=== PATIENT | female | born 1985 | race Caucasian/White ===

== ENCOUNTER 2022-07-26 09:24 | Outpatient (CLI) | payer BC, SELFPAY ==
--- NOTE | ~2022-07-26 | US_ITS ---
. EXAMINATION: US biopsy abd retroperitoneal DATE: 07/26/2022 10:22 INDICATION: Abdominal wall mass at the section scar. TECHNIQUE: The procedure including the risks, benefits, and alternatives was discussed with the patie nt. Risks discussed included bleeding and infection. The patient understood the risks and agreed to p roceed. The skin overlying the abdomen was prepped and draped in usual sterile fashion. Anesthetic w as administered with 1% lidocaine subcutaneously. An 18 gauge core biopsy needle was then used to ob tain 3 core biopsy specimens under continuous sonographic guidance. The entry site was cleaned and dr essed. There were no immediate complications. FINDINGS: Ultrasound images demonstrate the needle in a 3.0 x 1.6 x 2.7 cm hypoechoic mass in anterio r abdominal wall at the section scar. IMPRESSION: 1. Ultrasound-guided core needle biopsy of an abdominal wall mass at the section scar. Reviewed, dictated and finalized at location A. IMPRESSION: 1. Ultrasound-guided core needle biopsy of an abdominal wall mass at the tommy an section scar.
== END 2022-07-26 09:25 | disposition home or self-care (01) ==
PROVIDERS: PCP Obstetrics & Gynecology Gynecology; Visit Provider Obstetrics & Gynecology Gynecology
DX: R19.00 Intra-abdominal and pelvic swelling, mass and lump, unspecified site (principal)
CPT/HCPCS: 49180; 76942; 88305